=== PATIENT | female | born 1960 | race Caucasian/White ===

== ENCOUNTER → 2016-09-20 | Outpatient (CLI) | payer OTHER ==
[~2016-09-20] MED LIST: CHOL1000 PO; GLIM2TAB2 PO; KETO10TA PO; LATA0.009 OPB; LEVO125T72 PO; LISI-729 PO; MAGN250T3 PO; METF1TAB53 PO; MULT-506 PO; OMEG10007 PO; OXYC-57 PO; TIMO0.5S35 OPB
[2016-09-20 12:42] LABS: BASO % 0.3 %; BASO ABS # 0.02 K/uL (0-0.2); COMPLETE YES; EOS % 2.1 %; HEMATOCRIT 37.7 % (37-47); IG% 0.1 %; LYMPH ABS # 2.63 K/uL (1.2-3.4); MEAN CELL VOLUME 87.5 fL (80-100); MEAN CORPUSCULAR HEMOGLOBIN 30.4 pg (25-34); MEAN CORPUSCULAR HGB CONC 34.7 g/dl (32-36); MEAN PLATELET VOLUME 11.5 fL (7.4-10.4); MONO % 7.6 %; NEUT % 54.9 %; PLATELET COUNT 313 K/uL (130-400); RED BLOOD COUNT 4.31 M/uL (4.2-5.4); WHITE BLOOD COUNT 7.52 K/uL (4.8-10.8)
[2016-09-20 13:24] LABS: BLOOD UREA NITROGEN 12 mg/dl (7-18); CALCIUM 9.2 mg/dl (8.5-10.1); CARBON DIOXIDE 24 mmol/L (21-32); CHLORIDE 104 mmol/L (98-107); GLUCOSE 143 mg/dl (70-99); POTASSIUM 4.4 mmol/L (3.5-5.1); SODIUM 137 mmol/L (136-145)
== END | disposition home or self-care (01) ==
LOC: C.CPL 11:08
PROVIDERS: ATTEND Orthopaedic Surgery
DX: M75.122 Complete rotator cuff tear or rupture of left shoulder, not specified as traumatic (principal)

== ENCOUNTER → 2016-09-23 | Day surgery (SDC) | payer OTHER ==
[2016-09-22 12:56] VITALS: Ht 162.6 cm; Wt 73.6 kg
[~2016-09-23] VITALS: Ht 162.6 cm; Wt 73.6 kg
[~2016-09-23] MED LIST changes: +ACETAMINOPHEN 325 MG TAB ONE; +ACETAMINOPHEN 500 MG TAB PO ONE; +ATROPINE SULFATE 0.1 MG/ML 5ML SYR IV PRN; +BUPIVACAINE/EPINEPHRINE 0.25% 1:200,000 30 ML VIAL ONE; +CEFAZOLIN 2000 MG/60 ML D5W IV SCH; +DEXAMETHASONE SOD INJ 4 MG/ML VIAL ONE; +EpHEDrine SULFATE INJ 50 MG/ML AMP IV PRN; +EpINEphrine INJ 1MG/ML AMP 1 MG/ML AMP ONE; +FENTANYL CITRATE INJ 50 MCG/1 ML 2 ML VIAL ONE; +GLYCOPYRROLATE INJ 0.2 MG/ML VIAL ONE; +HYDROmorphone INJ 1 MG/ML SYR IV PRN; +INSULIN HUMAN REGULAR PER UNIT 5 UNITS in SYRINGE 0 ML IV STA; +LACTATED RINGER'S 1000ML 1,000 ML IV ONE; +LACTATED RINGER'S 1000ML 1,000 ML IV SCH; +LIDOCAINE HCL 1% MPF 2 ML VIAL ONE; +LIDOCAINE HCL 2% 2 ML VIAL (20MG/ML) ONE; +MIDAZOLAM HCL 1 MG/ML 2ML VIAL ONE; +NEOSTIGMINE METHYLSULFATE 5 MG/5 ML SYR ONE; +NURSING VERBAL MED ORDER ONE; +NovoLIN-R INSULIN PER UNIT CHARGE ONE; +ONDANSETRON INJ 2 MG/ML 2 ML VIAL IV PRN; +ONDANSETRON INJ 2 MG/ML 2 ML VIAL ONE; +OXYCODONE/ACETAMINOPHEN 5-325 TAB PO PRN; +PATIENT'S ALLERGY INFO NEEDS ENTERED SCH; +PROMETHAZINE HCL INJ 12.5 MG in SODIUM CHLORIDE 0.9% 50ML 50 ML IV STA; +PROMETHAZINE HCL INJ 25 MG/ML 1 ML VIAL ONE; +PROPOFOL IV EMULSION 10 MG/ML 20 ML VIAL IV ONE; +ROCURONIUM BROMIDE 10 MG/ML 5 ML VIAL ONE; +ROPIVACAINE 0.5% 5 MG/ML 30 ML VIAL ONE; +SCOPOLAMINE 1.5 MG TDSY TD ONE; +SODIUM CHLORIDE 0.9% 1000ML 1,000 ML IV SCH
--- NOTE | 2016-09-23 06:49 | History & Physical Bridge - [place] ---
H&P Re-Evaluation Bridge Note: I have examined the patient, reviewed the History & Physical and in the interval since the performance of the History & Physical I have noted the following changes of clinical significance: No changes noted
--- NOTE | 2016-09-23 08:40 | [facility] Post Operative Brief Note ---
Immediate Operative Summary Operative Date Sep 23, 2016. Pre-Operative Diagnosis Left Shoulder Rotator Cuff Tear Post-Operative Diagnosis Same Procedure(s) Performed Left Shoulder Arthroscopy Small Rotator Cuff Repair, Subacromial Decompression, Biceps Tenotomy, Distal Clavicle Resection Surgeon Dr. Covarrubias Finisher Machine Surgeon(s) Fang Hallman PA-C Estimated Blood Loss 3 ml Findings as above Specimens None Complication(s) None Disposition Recovery Room / PACU
--- NOTE | 2016-09-23 08:56 | Discharge Instructions-SurgCtr ---
Discharge Instructions Date of Service Sep 23, 2016. Visit Reason for Visit: Full Thickness Rotator Cuff Tear Discharge Discharge Diagnosis / Problem: SAME ABOVE Discharge Goals Goal(s): Decrease discomfort, Improve function Medications Stopped Medications Name(s): FISH OIL/METFORMIN STOPPED ON TUESDAY Restart Stopped Medication(s): OCTOBER RESTART 09/23/2016 Activity Recommendations Activity Limitations: as noted below Lifting Limitations: until after follow-up appointment Exercise/Sports Limitations: until after follow-up appointment Shower/Bathe: tomorrow Anesthesia . Post Anesthesia Instructions: If you have had General Anesthesia or IV Sedation: * Do not drive today. * Resume driving when surgeon permits. * Do not make important decisions or sign legal documents today. * Call surgeon for: 1. Temperature elevations greater than 101 degrees F. 2. Uncontrollable pain. 3. Excessive bleeding. 4. Persistent nausea and vomiting. 5. Medication intolerance (nausea, vomiting or rash). * For nausea and vomiting use only clear liquids such as: tea, soda, bouillon until nausea subsides, then gradually increase diet as tolerated. * If you have any concerns or questions, call your surgeon's office. If physician is unavailable and it is an emergency, call 911 or go to the nearest emergency room. . Instructions / Follow-Up Instructions / Follow-Up MEDICATIONS: * Resume previous medications unless instructed otherwise by your surgeon. * Always take pain medication on a full stomach or with food to avoid upset stomach. * Do not drink alcohol or drive while taking narcotics. * Ibuprofen or Tylenol may be taken if narcotic not needed. SPECIAL CARE INSTRUCTIONS: __ None _X_ Keep extremity elevated and iced x 48 hours; apply ice 20-30 minutes 8-10 times/day. May remove at night. _X_ Sling (MAY REMOVE AFTER 48 HOURS ONLY TO SHOWER AND FOR THERAPY) _X_24 hrs/day __ Remove at night __ Shoulder Immobilizer __ 24 hrs/day __ Remove at night _X_ Dressing __ Maintain until seen in office, may shower with plastic over site _X_ Remove dressings in 24-48 hours and then may shower _X_ Cover incisions with band-aids after showering __ Do not remove steri-strips Call physician if chills or temperature rises above 102 degrees or pain unrelieved by prescribed pain medications at . . Diet Recommendations Home Diet: no limitations Fluid Restriction: None Procedures Procedures Performed: Left Shoulder Arthroscopy Small Rotator Cuff Repair, Subacromial Decompression, Biceps Tenotomy, Distal Clavicle Resection Pending Studies Studies pending at discharge: no Work Instructions Return To Work: after follow-up Lifting Limitations: NO LIFTING WITH LEFT ARM Medical Emergencies . Who to Call and When: Medical Emergencies: If at any time you feel your situation is an emergency, please call 911 immediately. . Non-Emergent Contact Non-Emergency issues call your: Primary Care Provider Call Non-Emergent contact if: you have a fever, temperature is above 101.5 . . "Provider Documentation" section prepared by Melvin Hallman.
--- NOTE | 2016-09-23 09:57 | OPERATIVE REPORT ---
DATE OF OPERATION: 09/23/2016 PREOPERATIVE DIAGNOSIS: Small to medium sized rotator cuff tear of the left shoulder. POSTOPERATIVE DIAGNOSES: Partial articular-sided tear of the left shoulder with severe external impingement, acromioclavicular joint arthritis and biceps tendonitis. PROCEDURES: Left shoulder diagnostic arthroscopy with extensive debridement, distal clavicle resection, acromioplasty, partial articular-sided rotator cuff repair and biceps tenotomy. SURGEON: Dr. Abdullahi Covarrubias. MANAGER SPEECH: Armen Hallman PA-C, whose assistance was necessary for positioning the arm and helping with instrumentation. ANESTHESIA: General with left interscalene nerve block. COMPLICATIONS: None. CONDITION: Stable to PACU. INDICATIONS: Renetta is a pleasant 56-year-old female who has been having pain since last May. She then fell on July 12 and has significant increasing shoulder pain. She failed conservative treatment. MRI was poor quality, but did show what appeared to be a full-thickness cuff tear. She elected to undergo arthroscopy. DESCRIPTION OF PROCEDURE: On 09/23/2016, she arrived at [facility] for the above procedures. She was seen in the preoperative holding area and the operative extremity was identified and signed. She was given a preoperative antibiotic and a left interscalene nerve block. She was taken back to the operating room, laid on the table in supine position and put under general anesthesia. She was then put into the beachchair position. The left shoulder was prepped and draped in sterile fashion. Time-out was done and the patient and operative extremity was properly identified. A scope was introduced into the posterior portal. Diagnostic arthroscopy showed no cartilage damage to the humeral head or the glenoid. The biceps tendon went through a normal size biceps yashira mechanism, but it was very red and inflamed on the dorsal aspect. The subscapularis was intact. There was a tear involving 50% of the footprint of the supraspinatus. The infraspinatus and teres minor were intact. An anterior portal was made. A shaver was used to start debridement of the intraarticular structures and the biceps tendon was arthroscopically tenotomized. The scope was then put into the subacromial space. A lateral portal was made. A shaver was used to do a complete subacromial and subdeltoid bursectomy. A 5-0 jen was then used to complete an acromioplasty of a Bigliani type 3 acromion. A shaver was used to remove any excess debris and attention was turned to the rotator cuff. The bursal side of the rotator cuff appeared to be intact. Time was spent debriding around the area and specifically checking for any tears. I did not want to complete the tear. I decided to do a PASTA repair. The scope was placed back into the glenohumeral joint. The exposed tuberosity was prepared with a ring curette down to bleeding bone. Two 3.0-mm BioComposite Arthrex SutureTak anchors were placed in the footprint. The scope was then put into the subacromial space. An additional anterolateral portal was made and Elissa cannula was placed. The tail from each suture was tied across the anchor to each other to hold down the medial row. The remaining 2 tails were then brought down to a single lateral row 4.75-mm BioComposite SwiveLock suture anchor. This gave a nice PASTA repair. Multiple pictures were taken. Attention was turned to the distal clavicle. Through the anterior portal, a shaver and ablator were used to skeletonize this clavicle and a 5-0 jen was then used to resect the distal 7 mm from the clavicle. Complete resection was checked under direct visualization. The scope was then placed in the glenohumeral joint and the articular margin of the rotator cuff had been restored. Multiple pictures were taken. Arthroscopic instruments were removed from the shoulder. Portal sites were closed with 3-0 nylon. She was then placed in a soft dressing and a regular arm sling. She was then extubated, transferred to a [facility] and taken to the postanesthesia care unit in stable condition. She tolerated the procedure well. I attest to the content of the Intraoperative Record and any orders documented therein. Any exceptio ns are noted below.
[2016-09-23 10:31] VITALS: TEMP 36.4
--- NOTE | 2016-09-23 11:15 | Anesthesia Progress Nt - [facility] ---
Anesthesia Post Op Note Date & Time Sep 23, 2016 at 11:14 Vital Signs Pain Intensity: 0 Vital Signs Past 12 Hours Date Time Temp Pulse Resp B/P Pulse Ox O2 Delivery O2 Flow Rate FiO2 09/23/16 10:31 36.4 89 16 148/77 93 Room Air 09/23/16 10:24 36.5 93 Room Air 09/23/16 10:23 87 14 92 09/23/16 10:23 86 14 09/23/16 10:20 133/77 09/23/16 10:18 94 14 09/23/16 10:18 94 14 97 09/23/16 10:17 92 16 09/23/16 10:17 92 16 100 09/23/16 10:15 159/76 09/23/16 10:12 77 14 09/23/16 10:12 78 14 100 09/23/16 10:10 148/95 09/23/16 10:07 80 16 09/23/16 10:07 79 16 92 09/23/16 10:05 148/80 09/23/16 10:02 78 14 09/23/16 10:02 77 14 99 09/23/16 10:00 156/85 09/23/16 09:57 80 15 93 09/23/16 09:57 80 15 09/23/16 09:55 152/82 09/23/16 09:52 79 14 09/23/16 09:52 79 14 93 09/23/16 09:51 79 15 09/23/16 09:51 79 15 93 09/23/16 09:50 157/86 09/23/16 09:46 75 13 09/23/16 09:46 76 13 100 09/23/16 09:45 146/77 09/23/16 09:41 75 14 09/23/16 09:41 75 14 100 09/23/16 09:40 145/80 09/23/16 09:36 80 14 09/23/16 09:36 79 14 100 09/23/16 09:35 148/84 09/23/16 09:32 78 15 90 09/23/16 09:32 79 15 09/23/16 09:30 148/91 09/23/16 09:27 78 15 93 09/23/16 09:27 78 15 09/23/16 09:25 143/90 09/23/16 09:22 85 21 94 09/23/16 09:22 85 21 09/23/16 09:20 152/85 09/23/16 09:17 93 15 09/23/16 09:17 93 15 96 09/23/16 09:16 81 16 100 09/23/16 09:16 81 16 09/23/16 09:15 144/84 09/23/16 09:11 75 0 09/23/16 09:11 75 0 100 09/23/16 09:10 156/80 09/23/16 09:06 75 2 100 09/23/16 09:06 76 2 09/23/16 09:05 136/81 09/23/16 09:01 77 4 99 09/23/16 09:01 77 4 09/23/16 09:00 142/73 09/23/16 08:57 36.2 84 16 155/74 98 Mask 7 09/23/16 08:56 79 12 99 09/23/16 08:56 79 12 09/23/16 08:55 142/83 09/23/16 08:54 155/74 09/23/16 07:16 95 25 100 09/23/16 07:16 95 09/23/16 07:15 93 09/23/16 07:15 93 17 158/121 99 09/23/16 07:15 93 17 158/121 99 09/23/16 07:15 93 09/23/16 07:10 88 16 147/90 99 09/23/16 07:10 87 09/23/16 07:10 88 16 147/90 99 09/23/16 07:10 87 09/23/16 07:05 91 09/23/16 07:05 90 67 164/87 100 09/23/16 07:05 90 67 164/87 100 09/23/16 07:05 91 09/23/16 07:02 161/95 09/23/16 07:02 161/95 09/23/16 07:00 94 0 09/23/16 07:00 94 0 09/23/16 06:31 36.9 98 20 167/94 97 Room Air Notes Mental Status: alert / awake / arousable, participated in evaluation Pt Amnestic to Procedure: Yes Nausea / Vomiting: adequately controlled Pain: adequately controlled Airway Patency, RR, SpO2: stable & adequate BP & HR: stable & adequate Hydration State: stable & adequate Anesthetic Complications: no major complications apparent
[2016-09-23 11:18] VITALS: BP 151/81; PULSE 91; O2SAT 94
== END | disposition home or self-care (01) ==
LOC: X.SURG 06:07
PROVIDERS: ATTEND Orthopaedic Surgery
DX: M75.102 Unspecified rotator cuff tear or rupture of left shoulder, not specified as traumatic (principal); M75.42 Impingement syndrome of left shoulder; M19.012 Primary osteoarthritis, left shoulder; M75.22 Bicipital tendinitis, left shoulder; Z98.51 Tubal ligation status; Z98.890 Other specified postprocedural states; I10 Essential (primary) hypertension